=== PATIENT | female | born 1995 | race Caucasian/White ===

== ENCOUNTER → 2018-09-13 | Outpatient (CLI) | payer OTHER ==
[2018-09-13 13:31] LABS: ANION GAP 12 (5-19); BLOOD UREA NITROGEN 6 mg/dL (7-20); CALCIUM 9.8 mg/dL (8.4-10.2); CARBON DIOXIDE 28 mmol/L (22-30); CHLORIDE 104 mmol/L (98-107); GLUCOSE 80 mg/dL (75-110); POTASSIUM 4.4 mmol/L (3.6-5.0); SODIUM 143.5 mmol/L (137-145)
== END ==
LOC: OD 11:52
PROVIDERS: ATTEND Family Medicine
DX: B37.3 Candidiasis of vulva and vagina (principal)
CPT/HCPCS: 36415; 80048

== ENCOUNTER → 2020-09-10 | Outpatient (CLI) | payer OTHER | LOC: OD 11:14 | PROVIDERS: ATTEND Family Medicine | DX: K90.41 Non-celiac gluten sensitivity (principal); Z83.49 Family history of other endocrine, nutritional and metabolic diseases | CPT/HCPCS: 36415; 83520; 84443 ==